=== PATIENT | female | born 1990 | race Caucasian/White ===

== ENCOUNTER 2017-11-26 19:57 | Emergency (ER) | payer SELFPAY ==
[2017-11-26 19:58] VITALS: BMI 27.4
[2017-11-26 20:07] VITALS: BP 122/81; PULSE 70; RESP 14; TEMP 97.9; O2SAT 98
[2017-11-26] MEDS ORDERED: Sodium Chloride 0.9% 1,000 ML IV ONE (20:30)
--- NOTE | 2017-11-26 20:33 | C.PDOC ---
History Of Present Illness 27 yo female w/o significant PMHx come in for evaluation of Left sided chest pain gradually developed since yesterday " after had some bad news". Pt reports , today pain is worse, more intense, radiating down to left arm associated with Left arm weakness,. Pt reports, " was unable to pick anything up today, my left hand so weak". Otherwise, pt denies fever, chills, recent illness, headache, dizziness, visual changes, focal deficits, neck pain, SOB, dyspnea, diaphoresis , palpitation, cough, wheezing, abd. pain, N/V, UTi sx. At the time of evaluation, pt appears upset, crying. Time Seen by Provider: 11/26/17 20:24 Chief Complaint (Nursing): Upper Extremity Problem/Injury History Per: Patient Onset/Duration Of Symptoms: Gradual Past Medical History Reviewed: Historical Data, Nursing Documentation, Vital Signs Vital Signs: Last Vital Signs Temp 97.9 F 11/26/17 20:03 Pulse 70 11/26/17 20:03 Resp 14 11/26/17 20:03 BP 122/81 11/26/17 20:03 Pulse Ox 98 11/26/17 22:30 - Medical History PMH: Asthma Family History: States: No Known Family Hx - Social History Hx Tobacco Use: No Hx Alcohol Use: No Hx Substance Use: No - Immunization History Hx Tetanus Toxoid Vaccination: No Hx Influenza Vaccination: No Hx Pneumococcal Vaccination: No Review Of Systems Except As Marked, All Systems Reviewed And Found Negative. Constitutional: Negative for: Fever, Chills Eyes: Negative for: Vision Change ENT: Negative for: Ear Discharge, Nose Discharge, Throat Pain, Throat Swelling Cardiovascular: Positive for: Chest Pain. Negative for: Palpitations, Orthopnea , Paroxysmal Noc. Dyspnea, Edema, Light Headedness Respiratory: Negative for: Cough, Shortness of Breath, Wheezing Gastrointestinal: Negative for: Nausea, Vomiting, Abdominal Pain, Diarrhea Genitourinary: Negative for: Dysuria Musculoskeletal: Negative for: Neck Pain, Back Pain Skin: Negative for: Rash Neurological: Positive for: Weakness. Negative for: Numbness, Altered Mental Status, Headache, Dizziness Physical Exam - Physical Exam Appears: Well, Non-toxic, Other (crying) Skin: Normal Color, Warm, Dry Head: Normacephalic Eye(s): bilateral: PERRL Ear(s): Bilateral: Normal Nose: No Flaring, No Discharge Oral Mucosa: Moist, No Drooling Tongue: Normal Appearing Lips: Normal Appearing Throat: No Erythema, No Drooling Neck: Normal ROM, Trachea Midline, No Midline Cervical Tenderness, No Paracervical Tenderness, No Step Off Deformity, Supple Chest: Symmetrical, No Deformity, Tenderness (left anterior chest wall over 2-5 intercostal spaces. 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 O2 Sat by Pulse Oximetry: 98 Pulse Ox Interpretation: Normal - Radiology CXR: Interpreted by Me, Viewed By Me CXR Interpretation: Yes: No Acute Disease - Other Rad C-spine X-Ray: Interpreted by Me, Viewed By Me Interpretation: (-) acute fx or sublux - CT Scan/US CTA chest r/o PE Other Rad Studies (CT/US): Radiology Report Reviewed CT/US Interpretation: EXAM: CT Angiography Chest With Intravenous Contrast. CLINICAL HISTORY: 27 years old, female; Pain and signs and symptoms; Other: Numbness left arm; Chest pain; Type not. specified. TECHNIQUE: Axial computed tomographic angiography images of the chest with intravenous contrast using. pulmonary embolism protocol. All CT scans at this facility use at least one of these dose optimization. techniques: automated exposure control; mA and/ or kV adjustment per patient size (includes targeted. exams where dose is matched to clinical indication); or iterative reconstruction. MIP reconstructed images were created and reviewed. Coronal and sagittal reformatted images were created and reviewed. CONTRAST: 100 mL of VISIPAQUE 320 administered intravenously. COMPARISON: No relevant prior studies available. FINDINGS: Pulmonary arteries: There is no evidence of peripheral filling defects within the pulmonary arterial. circulation to suggest pulmonary embolism. Aorta: No acute findings. No thoracic aortic aneurysm. Lungs: There is no evidence of focal pulmonary consolidation. Pleural space: Unremarkable. No significant effusion. No pneumothorax. Heart: There is a small amount of air within the right atrium and pulmonary trunk likely related to. their intravenous injection. No significant pericardial effusion. Bones/ joints: No acute fracture. No dislocation. Soft tissues: Unremarkable. Lymph nodes: Unremarkable. No enlarged lymph nodes. IMPRESSION: No pulmonary embolism. No focal consolidation.. Progress Note: On re-evaluation at 22:20, pt reports moderate improvemnet in sx , " my Rleft arm is back to normal". pt is afebrile, hemodynamicaly stable. Neuro: B/L UEs hand doll repairer 5/5. NO neurological deficits. Blood work review and results review with pt. Noted slight high D-DImer, CTA r/p PE offered and pt agrees. On re-eval, pt is afebrile, hemodynamicaly stable. Ambulatory in ED with stable gait. PulsEOx 98% RA. ENT: no acute findings. Neck: Supple, (-) midline tenderness, (-) JVD. Lungs: CTA B/L, BS dequal B/L. CVS: (+)S1S2, reg. Abd: benign. Neurologicaly intact. CTA chest r/o PE- normal study. Pt has clinical findings c/w left sided chest pain r/o chest strain vs cervical radiculopathy vs anxiety. Pt advised. ref. to f/u with PMD in 2-3 days for re- evaluation. return to ED if any worsening or new changes. Disposition Counseled Patient/Family Regarding: Studies Performed, Diagnosis, Need For Followup, Rx Given - Disposition Referrals: Donna Bunch [Staff Provider] - Disposition: HOME/ ROUTINE Disposition Time: 23:37 Condition: STABLE Additional Instructions: Follow up with PMD in 1-2 days for re-evaluation. Return to ED if any worsening or new changes. Instructions: Chest Pain Forms: [employer] (Croatian) - Clinical Impression Clinical Impression: Chest pain
[2017-11-26] MEDS ORDERED: Sodium Chloride 0.9% 1,000 ML ONE (20:38)
[2017-11-26 20:57] LABS: BASO # 0.1 K/uL (0.0-0.2); EOS # 0.3 K/uL (0.0-0.7); EOS % 4.8 % (0.0-4.0); HEMOGLOBIN 12.4 g/dL (11.0-16.0); LYMPH # 2.4 K/uL (1.0-4.3); LYMPH % 35.9 % (20.0-40.0); MEAN CELL VOLUME 91.1 fL (81.0-99.0); MEAN CORPUSCULAR HEMOGLOBIN 30.6 pg (27.0-31.0); MEAN CORPUSCULAR HGB CONC 33.7 g/dL (33.0-37.0); MEAN PLATELET VOLUME 10.5 fL (7.2-11.7); MONO # 0.4 K/uL (0.0-0.8); MONO % 6.2 % (0.0-10.0); NEUT # 3.5 K/uL (1.8-7.0); NEUT % 52.1 % (50.0-75.0); NRBC % 0.1 % (0.0-2.0); RBC 4.06 Mil/uL (3.80-5.20); WHITE BLOOD COUNT 6.7 K/uL (4.8-10.8)
[2017-11-26 21:02] LABS: SQUAMOUS EPITHIAL 3 /hpf (0-5); URINE BILIRUBIN NEGATIVE (NEGATIVE); URINE BLOOD NEGATIVE (NEGATIVE); URINE CLARITY Clear (Clear); URINE COLOR Yellow (YELLOW); URINE GLUCOSE (UA) NORMAL (Normal); URINE LEUKOCYTE ESTERASE NEG Leu/uL (Negative); URINE PROTEIN NEGATIVE (NEGATIVE); URINE UROBILINOGEN NORMAL mg/dL (0.2-1.0)
[2017-11-26 21:10] LABS: CALCIUM 8.9 mg/dl (8.6-10.4); GFR AFRICAN-AMERICAN > 60; GFR NON-AFRICAN AMERICAN > 60
[2017-11-26 21:11] LABS: HCG,QUALITATIVE URINE NEGATIVE (NEGATIVE)
[2017-11-26 21:17] LABS: BLOOD UREA NITROGEN 12 mg/dL (7-17)
[2017-11-26 21:51] LABS: INR 1.1; PROTHROMBIN TIME 12.4 SECONDS (9.7-12.2)
[2017-11-26] MEDS ORDERED: Iodixanol 320 MG/ML 100 ML BOTTLE IV ONE (22:25)
--- NOTE | 2017-11-27 08:26 | CT ---
Date of service: 11/26/2017 PROCEDURE: CT Chest with contrast (Pulmonary Angiogram) HISTORY: chest pain COMPARISON: None available. TECHNIQUE: Axial computed tomography images were obtained of the chest in the pulmonary arterial phase of enhancement. Coronal and sagittal reformatted images were created and reviewed. Intravenous contrast dose: 100 cc of Visipaque 320 Radiation dose: Total exam DLP = 204.68 mGy-cm. This CT exam was performed using one or more of the following dose reduction techniques: Automated exposure control, adjustment of the mA and/or kV according to patient size, and/or use of iterative reconstruction technique. FINDINGS: PULMONARY ARTERIES: Unremarkable. No pulmonary embolism. AORTA: No acute findings. No thoracic aortic aneurysm. LUNGS: Unremarkable. No nodule, mass or pulmonary consolidation. PLEURAL SPACES: Unremarkable. No effusion or pneumothorax. HEART: Unremarkable. No cardiomegaly. No significant pericardial effusion. LYMPH NODES: No lymphadenopathy. BONES, CHEST WALL: Unremarkable. No fracture or destructive lesion OTHER FINDINGS: Mild esophageal mucosal thickening and mild dilatation of the distal esophagus noted. IMPRESSION: Unremarkable CT pulmonary angiogram. No pulmonary embolus. Mild esophageal mucosal thickening. Preliminary report was submitted by [facility].
--- NOTE | 2017-11-27 11:15 | RAD ---
Date of service: 11/26/2017 HISTORY: chest pain COMPARISON: No prior. TECHNIQUE: Chest PA and lateral FINDINGS: LUNGS: No active pulmonary disease. PLEURA: No significant pleural effusion identified. No pneumothorax apparent. CARDIOVASCULAR: Normal. OSSEOUS STRUCTURES: No significant abnormalities. VISUALIZED UPPER ABDOMEN: Normal. OTHER FINDINGS: None. IMPRESSION: No active disease.
--- NOTE | 2017-11-27 11:16 | RAD ---
Date of service: 11/26/2017 PROCEDURE: Cervical Spine Radiographs. HISTORY: Pain. COMPARISON: None. FINDINGS: BONES: Alignment maintained. No fracture. Dens Intact. DISC SPACES: Normal. SOFT TISSUES: Normal. No prevertebral soft tissue swelling. OTHER FINDINGS: None. IMPRESSION: Normal cervical spine radiographs
--- NOTE | 2017-11-30 15:24 | CARD ---
APPROVED REPORT Date of service: 11/26/2017 EKG Measurement Heart [id number] <Conclusion> Sinus bradycardia Left axis deviation Abnormal ECG
== END 2017-11-26 23:48 | disposition home or self-care (01) ==
LOC: C.ER 19:57
DX: R07.9 Chest pain, unspecified (principal)
CPT/HCPCS: 36415; 71046; 71275; 72040; 80048; 81001; 84484; 84703; 85025; 85378; 85610; 85730; 93005; 96361; 96374; 99284; J1885; J7030; Q9967